=== PATIENT | female | born 1970 | race Caucasian/White ===

== ENCOUNTER 2020-09-01 20:23 | Emergency (ER) | payer OTHER ==
--- OUTSIDE RECORDS SUMMARY | 2020-09-01 20:27 | XMS REPORT | Continuity of Care Document ---
:1970 Author Organization [facility] t Address [address] [place] [address] Care Team Providers Name Role Phone Ute Leung Attending Clinician Steffany Decker Attending Clinician Problems Condition Condition Condition Status Onset Resolution Last Treating Co mments Source Name Details Category Date Date Treatment Clinician Date Muscle Problem Active 2012-062019-02-20 Memor ia pain 2-05 00:15:55 l (finding) Muscle 00:00: Leticia nn pain 00 (finding) Active 06/03/2013 Problem 02/20/2019 Data migrated from [employer] on 11/29/14. Medical Group Cervico-oc Problem Active 2012-062019-02-20 M emoria cipital 1-20 00:15:55 l neuralgia 00:00: [place] (finding) Cervico-oc 00 cipital neuralgia (finding) Active 05/19/2013 Problem 02/20/2019 Data migrated from [employer] on 11/29/14. Medical Group Spasm of Problem Active 2012-062019-02-20 Mem oria back 1-20 00:15:55 l muscles Spasm of 00:00: Leticia nn (finding) back 00 muscles (finding) Active 05/19/2013 Problem 02/20/2019 Data migrated from [employer] on 11/29/14. Medical Group Migraine Problem Active 2019-02-20 Mem oria (disorder) 00:15:55 l Migraine Ward n (disorder) Active Problem 02/20/2019 Medical Group Migraine Problem Active 2019-02-20 Mem oria with aura 00:15:55 l (disorder) Migraine He rmann with aura (disorder) Active Problem 02/20/2019 Medical Group Spasmodic Problem Active 2019-02-20 Me moria torticolli 00:15:55 l s Oj (disorder) Spasmodic torticolli s (disorder) Active Problem 02/20/2019 Medical Group Allergies, Adverse Reactions, Alerts Allergy Allergy Status Severity Reaction(s) Onset Inactive Treating Comm ents Source Name Type Date Date Clinician sulfa sulfa Active 2012-06 Memoria drugs<potts drugs<potts 1-20 l p>1</sup p>1</sup 06:00: Ward n > > 00 Social History Social Habit Start Date Stop Date Quantity Comments Source Social History 2018-04-14 2018-04-14 [facility] 16:52:20 16:52:20 Medications Ordered Filled Start Stop Current Ordering Indication Dosage Frequency Signature Comments Components Source Medication Medication Date Date Medication? Clinician (SIG) Name Name Acetamino Yes 1 tab, PO, Memoria en 325 MG / 8-21 Q6H, # 30 l Hydrocodone 16:03: tab, 0 Herm stacy Bitartrate 31 Refill(s), 5 MG Oral given to Tablet patient pregabalin Yes 50 mg = 2 Me moria 25 MG Oral 7-08 cap, PO, l Capsule 21:10: Daily, # Ward n [Lyrica] 32 180 cap, 0 Refill(s) dexamethaso Yes See Memori a ne 6 mg 6-11 Instructio l oral tablet 14:17: ns, 3 tab H ermann 00 po x 1 day, then 2 tab po x 1 day, then 1 tab PO x 1 day then stop, # 6 tab, 0 Refill(s), [facility] indomethaci Yes = 1 cap, Me moria n 75 mg 6-06 PO, Daily, l oral 17:23: # 30 Oj capsule, 26 unknown extended unit, release Refill(s) 2, WITH FOOD., Pharmacy: [facility] Acetaminoph Yes 1 tab, PO, Memoria en 325 MG / 6-05 Q6H, # 30 l Hydrocodone 16:09: tab, 0 Herm stacy Bitartrate 11 Refill(s), 5 MG Oral given to Tablet patient onabotulinu Yes See Memori a mtoxinA 100 5-09 Instructio l UNT/ML 17:32: ns, Oj Injectable 00 Administer Solution 300 unis [Botox] IM to head and neck every 90 days by physician 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), X 1 day, # 3 vial, 3 Refill(s) Acetaminoph Yes 1 tab, PO, Memoria en 325 MG / 3-26 Q6H, # 30 l Hydrocodone 17:01: tab, 0 Herm stacy Bitartrate 10 Refill(s), 5 MG Oral given to Tablet patient onabotulinu Yes See Memori a mtoxinA 200 3-19 Instructio l UNT/ML 22:30: ns, # 1 Oj Injectable 04 ea, Solution Refill(s) [Botox] 2, INJECT 155 UNITS INTRA MUSCULARLY TO HEAD AND NECK EVERY 90 DAYS FOR CHRONIC MIGRAINE, Pharmacy: [facility] indomethaci Yes = 1 cap, Me moria n 75 mg 2-19 PO, Daily, l oral 17:32: # 30 Oj capsule, 34 unknown extended unit, release [facility] Acetaminoph No 1 tab, PO, Memoria en 325 MG / 1-07 Q6H, # 30 l Hydrocodone 17:56: tab, 0 Herm stacy Bitartrate 18 Refill(s), 5 MG Oral given to Tablet patient indomethaci 2017-06 No = 1 cap, Me moria n 75 mg 2-18 PO, Daily, l oral 19:25: # 30 [place] capsule, 50 unknown extended unit, release Refill(s) 1, [facility] pregabalin 2017-06 No 50 mg = 2 Me moria 25 MG Oral 2-18 cap, PO, l Capsule 18:54: Daily, # Ward n [Lyrica] 00 180 cap, 1 Refill(s) onabotulinu 2017-06 No See Memori a mtoxinA 100 2-04 Instructio l UNT/ML 20:51: ns, [place] Injectable 00 Administer Solution 300 units [Botox] IM to head and neck every 90 days by physician 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 2017-06 No See Memori a mtoxinA 200 0-09 Instructio l UNT/ML 16:31: ns, Oj Injectable 00 Administer Solution 155 units [Botox] IM to head and neck every 90 days by physician for Chronic Migraine (ICD G43.709), X 1 day, # 1 vial, 3 Refill(s) indomethaci No See Memori a n 75 mg 9-21 Instructio l oral 16:14: ns, # 30 [place] capsule, 03 unknown extended unit, TAKE release 1 CAPSULE BY MOUTH DAILY, [facility]acy: 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), X 1 day, # 3 vial, 3 Refill(s) Acetaminoph No 1 tab, PO, Memoria en 325 MG / 8-17 Q6H, # 30 l Hydrocodone 16:35: tab, 0 Herm stacy Bitartrate 33 Refill(s), 5 MG Oral given to Tablet patient indomethaci No See Memori a n 75 mg 7-17 Instructio l oral 21:27: ns, TAKE 1 [place] capsule, 29 CAPSULE BY extended MOUTH release EVERY DAY, # 30 cap, 1 Refill(s), [facility] ketOROLAC No 30 mg, Memori a 30 mg/mL 7-09 Route: IM, l injectable 17:28: ONCE, Ward n solution 00 Dosing Weight 44.716, kg, Start date: 01/05/18 12:28:00 CDT, Stop date: 01/05/18 12:28:00 CDT indomethaci Yes See Memori a n 75 mg 6-19 Instructio l oral 14:22: ns, # 30 Oj capsule, 57 unknown extended unit, TAKE release 1 CAPSULE BY MOUTH EVERY DAY, [facility] indomethaci Yes See Memori a n 75 mg 5-21 Instructio l oral 14:01: ns, # 30 [place] capsule, 47 unknown extended unit, TAKE release 1 CAPSULE BY MOUTH EVERY DAY, [facility] onabotulinu Yes See Memori a mtoxinA 100 4-12 Instructio l UNT/ML 20:25: ns, O[place] Injectable 00 Administer Solution 300 units [Botox] IM to head and neck every 90 days by physician 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), X 1 day, # 3 vial, 3 Refill(s) pregabalin Yes 50 mg = 2 Me moria 25 MG Oral 3-19 cap, PO, l Capsule 20:45: Daily, # Ward n [Lyrica] 00 180 cap, 1 Refill(s) indomethaci No See Memori a n 75 mg 3-19 Instructio l oral 18:06: ns, # 30 Oj capsule, 00 unknown extended unit, release Refill(s) 1, TAKE 1 CAPSULE BY MOUTH EVERY DAY, [facility]: [facility] Acetaminoph Yes 1 tab, PO, Memoria en 325 MG / 2-28 Q6H, # 30 l Hydrocodone 00:19: tab, 0 Herm stacy Bitartrate 00 Refill(s), 5 MG Oral other Tablet indomethaci 2016-06 Yes See Memori a n 75 mg 2-21 Instructio l oral 23:44: ns, TAKE 1 [place] capsule, 21 CAPSULE BY extended MOUTH release EVERY DAY, # 30 cap, 2 Refill(s), [facility] Ondansetron 2016-06 Yes 8 mg = 1 Me moria 8 MG 1-17 tab, PO, l Disintegrat 19:39: TID, PRN He rmann ing Tablet 49 Nausea | PRN nausea, Dissolve under tongue, # 30 tab, 1 Refill(s), [facility] rizatriptan 2017- Yes See Memori a 10 mg oral 1-17 Instructio l tablet 19:14: ns, TAKE 1 Leticia nn 00 TABLET BY MOUTH DAILY NEEDED FOR MIGRAINE HEADACHE, # 30 tab, 2 Refill(s), [facility] Vital Signs Vital Name Observation Time Observation Value Comments Source Height 2019-02-17 15:09:00 152.4 cm [facility] [place] Systolic (mm Hg) 2019-02-17 15:09:00 Mansoor rial [place] Diastolic (mm Hg) 2019-02-17 15:09:00 Mem orial Oj Heart Rate 2019-02-17 15:09:00 [facility] [place] Weight 2019-02-17 15:09:00 [facility] [place] BMI Calculated 2019-02-17 15:09:00 Memori al Oj Height 2018-12-02 15:31:00 152.4 cm [facility] Weight 2018-12-02 15:31:00 [facility] [place] BMI Calculated 2018-12-02 15:31:00 [facility] [place] Heart Rate 2018-12-02 15:31:00 [facility] [place] Systolic (mm Hg) 2018-12-02 15:31:00 Mansoor rial Oj Diastolic (mm Hg) 2018-12-02 15:31:00 Mem o[facility] [place] Height 2018-09-22 15:51:00 152.4 cm [facility] [place] Heart Rate 2018-09-22 15:51:00 [facility] [place] Systolic (mm Hg) 2018-09-22 15:51:00 Mansoor rial [place] Diastolic (mm Hg) 2018-09-22 15:51:00 Mem orial Oj BMI Calculated 2018-09-22 15:51:00 [facility] [place] Weight 2018-09-22 15:51:00 [facility] [place] Weight 2018-07-06 17:03:00 [facility] BMI Calculated 2018-07-06 17:03:00 [facility] [place] Height 2018-07-06 17:03:00 152.4 cm [facility] [place] Heart Rate 2018-07-06 17:03:00 [facility] [place] Systolic (mm Hg) 2018-07-06 17:03:00 Mansoor rial [place] Diastolic (mm Hg) 2018-07-06 17:03:00 [facility] [place] Height 2018-04-14 16:17:00 152.4 cm [facility] [place] Weight 2018-04-14 16:17:00 [facility] [place] BMI Calculated 2018-04-14 16:17:00 [facility] [place] Heart Rate 2018-04-14 16:17:00 [facility] Oj Systolic (mm Hg) 2018-04-14 16:17:00 Mansoor rial [place] Diastolic (mm Hg) 2018-04-14 16:17:00 [facility] [place] Weight 2018-02-13 15:55:00 [facility] BMI Calculated 2018-02-13 15:55:00 Memori al Oj Height 2018-02-13 15:55:00 152.4 cm [facility] [place] Heart Rate 2018-02-13 15:55:00 [facility] [place] Systolic (mm Hg) 2018-02-13 15:55:00 Mansoor rial [place] Diastolic (mm Hg) 2018-02-13 15:55:00 Mem orial Oj Heart Rate 2018-01-05 16:42:00 [facility] [place] Systolic (mm Hg) 2018-01-05 16:42:00 Mansoor rial Oj Diastolic (mm Hg) 2018-01-05 16:42:00 Mem o[facility] [place] BMI Calculated 2018-01-05 16:42:00 [facility] [place] Weight 2018-01-05 16:42:00 [facility] [place] Height 2018-01-05 16:42:00 152.4 cm [facility] O[facility] Weight 2017-10-16 16:40:00 [facility] [place] BMI Calculated 2017-10-16 16:40:00 Memori al Oj Height 2017-10-16 16:40:00 152.4 cm [facility] [place] Heart Rate 2017-10-16 16:40:00 [facility] [place] Systolic (mm Hg) 2017-10-16 16:40:00 Mansoor rial [place] Diastolic (mm Hg) 2017-10-16 16:40:00 Mem orial Oj BMI Calculated 2017-07-24 21:48:00 [facility] [place] Heart Rate 2017-07-24 21:48:00 [facility] [place] Height 2017-07-24 21:48:00 152.4 cm [facility] [place] Systolic (mm Hg) 2017-07-24 21:48:00 Mansoor nery [place] Diastolic (mm Hg) 2017-07-24 21:48:00 [facility] orial [place] Weight 2017-07-24 21:48:00 [facility] Procedures Procedure Date / Time Performing Clinician Source Performed [place] of 2019-02-17 16:04:00 [facility] muscle(s); neck muscle(s), excluding muscles of the larynx, unilateral (eg, for cervical dystonia, spasmodic torticollis) Injection(s); single or 2018-02-13 16:39:00 Mansoor riamay Oj multiple trigger point(s), 3 or more muscles [place] of 2018-01-05 17:25:00 [facility] muscle(s); muscle(s) innervated by facial, trigeminal, cervical spinal and accessory nerves, bilateral (eg, for chronic migraine) Eye examination 2017-06-30 00:00:00 [facility] Her wilson Mammogram 2015-06-30 00:00:00 [facility] Her wilson Encounters Start End Encounter Admission Attending Care Care Encounter Source Date/Time Date/Time Type Type Clinicians Facility Department ID 2019-02-17 2019-02-17 Outpatient Ute Leung [facility] [id number] 10:45:00 23:59:59 29 2019-01-04 2019-01-05 [id number] 16:08:58 16:08:58 48 2018-12-08 2018-12-09 Outpatient [facility] [id number] 08:28:21 23:59:59 45 2018-12-03 2018-12-04 Outpatient MG MG [id number] 12:13:53 23:59:59 44 2018-12-02 2018-12-02 [facility] [id number] 10:45:00 23:59:59 Steffany 28 Young 2018-11-05 2018-11-06 Outpatient [facility] [id number] 12:32:18 23:59:59 43 2018-09-22 2018-09-22 [id number] 11:15:00 23:59:59 27 2018-09-15 2018-09-16 Outpatient MG MG [id number] 11:59:00 23:59:59 42 2018-09-07 2018-09-08 Outpatient [facility] [id number] 09:01:00 23:59:59 41 2018-08-18 2018-08-19 Outpatient [facility] [id number] 10:50:00 23:59:59 40 2018-07-06 2018-07-06 Outpatient RoxanneRamón deleonll [facility] [id number] 11:15:00 23:59:59 26 2018-06-16 2018-06-17 Outpatient [facility] [id number] 11:45:00 23:59:59 39 2018-06-16 2018-06-17 Outpatient [facility] [id number] 10:11:00 23:59:59 38 2018-06-02 2018-06-03 Outpatient [facility] [id number] 14:50:00 23:59:59 37 2018-04-28 2018-04-28 Outpatient Madhu Ute [facility] [id number] 10:45:00 10:45:00 24 2018-04-16 2018-04-17 Outpatient [facility] [id number] 13:47:00 23:59:59 36 2018-04-14 2018-04-14 Outpatient Jeronimo, [facility] [id number] 11:15:00 23:59:59 Steffany 25 Lobo 2018-03-27 2018-03-27 Outpatient Madhu Ute MG [facility] [id number] 08:45:00 08:45:00 19 2018-03-20 2018-03-21 Outpatient [facility] [id number] 11:05:00 23:59:59 35 2018-03-17 2018-03-18 Outpatient MHMG MG [id number] 09:29:00 23:59:59 34 2018-03-13 2018-03-13 Outpatient Madhu Ute [facility] [id number] 10:45:00 10:45:00 23 2018-02-27 2018-02-27 Outpatient Ute Leung [facility] [id number] 10:45:00 10:45:00 22 2018-02-13 2018-02-13 Outpatient Ute Leung [facility] [id number] 10:45:00 23:59:59 21 2018-01-29 2018-01-29 Outpatient Ute Leung [facility] [id number] 10:15:00 10:15:00 20 2018-01-13 2018-01-14 Outpatient [facility] [id number] 11:35:00 23:59:59 33 2018-01-13 2018-01-14 Outpatient [facility] [id number] 11:23:00 23:59:59 32 2018-01-13 2018-01-14 Outpatient [facility] [id number] 11:14:00 23:59:59 31 2018-01-13 2018-01-14 Outpatient [facility] [id number] 11:14:00 23:59:59 31 2018-01-05 2018-01-05 Outpatient Jeronimo, [facility] [id number] 11:45:00 23:59:59 Steffany 18 Lobo 2017-12-16 2017-12-17 Outpatient [facility] [id number] 08:24:00 23:59:59 30 2017-11-17 2017-11-18 Outpatient [facility] [id number] 08:34:00 23:59:59 29 2017-10-16 2017-10-16 Outpatient Ute Leung [facility] [id number] 11:45:00 23:59:59 17 2017-10-09 2017-10-10 Outpatient [facility] [id number] 15:25:00 23:59:59 28 2017-10-03 2017-10-04 Outpatient [facility] [id number] 09:44:00 23:59:59 27 2017-09-15 2017-09-16 Outpatient [facility] [id number] 16:28:00 23:59:59 26 2017-09-15 2017-09-16 Outpatient [facility] [id number] 11:46:00 23:59:59 25 2017-09-05 2017-09-06 Outpatient [facility] [id number] 11:33:00 23:59:59 24 2017-08-22 2017-08-23 Outpatient [facility] [id number] 11:35:00 23:59:59 23 2017-07-24 2017-07-24 Outpatient Jeronimo, [facility] [id number] 15:30:00 23:59:59 Steffany 16 Lobo 2017-07-24 2017-07-24 Outpatient Jeronimo, [facility] [id number] 15:30:00 23:59:59 Steffany Holland Lobo 2017-06-19 2017-06-20 Outpatient MG [facility] [id number] 11:28:00 23:59:59 22 2017-06-17 2017-06-18 Outpatient MG [facility] [id number] 13:43:00 23:59:59 21 2017-05-16 2017-05-17 Outpatient MG MG [id number] 13:35:00 23:59:59 20 2017-05-16 2017-05-17 Outpatient MG [facility] [id number] 11:25:00 23:59:59 19 Results This patient has no known results."
[2020-09-01] MEDS ORDERED: KETOROLAC 30 MG/ML INJ ONE (21:21)
[2020-09-01] MEDS ORDERED: NA CHLORIDE 0.9% 1,000 ML ONE (21:21)
[2020-09-01] MEDS ORDERED: ONDANSETRON 4 MG/2 ML VIAL ONE (21:21)
[2020-09-01] MEDS ORDERED: METOCLOPRAMIDE 10 MG/2mL INJ ONE (21:23)
[2020-09-01] MEDS ORDERED: MEPERIDINE HCL 25 MG/ML SYR ONE ×2 (22:21→23:40)
[2020-09-01] MEDS ORDERED: PROMETHAZINE INJ 25 MG/ML AMP ONE (22:53)
--- NOTE | 2020-09-01 23:23 | ER ---
Nurse's Notes [facility] Name: Keri Ashton Age: 50 yrs Sex: Female : 1970 Arrival Date: 09/01/2020 Time: 20:26 Bed 14 Private MD: Diagnosis: Headache;Nausea and vomiting Presentation: 09/01 20:50 Chief complaint: Patient states: Headache, N/V x 3 - days. HX of Migraines. Has not had ca1 scheduled Botox for migraines because of insurance. Coronavirus screen: Client denies travel out of the [place] in the last 14 days. headache, nausea, vomiting. Client presents with at least one sign or symptom that may indicate coronavirus-19. Standard/surgical mask placed on the client. Provider contacted for isolation considerations. Ebola Screen: Patient negative for fever greater than or equal to 101.5 degrees Fahrenheit, and additional compatible Ebola Virus Disease symptoms Patient denies exposure to infectious person. Patient denies travel to an Ebola-affected area in the 21 days before illness onset. No symptoms or risks identified at this time. Initial Sepsis Screen: Does the patient meet any 2 criteria? No. Patient's initial sepsis screen is negative. Does the patient have a suspected source of infection? No. Patient's initial sepsis screen is negative. Risk Assessment: Do you want to hurt yourself or someone else? Patient reports no desire to harm self or others. Onset of symptoms was September 01, 2020. 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 - Social history:: Smoking status: Patient denies any tobacco usage or history of. Smoking status: Patient denies any tobacco usage or history of. Screenin:54 Abuse screen: Denies threats or abuse. Nutritional screening: No deficits noted. ea Tuberculosis screening: No symptoms or risk factors identified. Fall Risk None identified. Assessment: 20:54 General: Appears uncomfortable, Behavior is appropriate for age. Pain:. Neuro: Level of ea Consciousness is awake, alert, obeys commands, Oriented to person, place, time. Cardiovascular: Patient's skin is warm and dry. Respiratory: Airway is patent Respiratory effort is even, unlabored, Respiratory pattern is regular, symmetrical. Derm: Skin is pink, warm \T\ dry. 23:42 Reassessment: Patient and/or family updated on plan of care and expected duration. Pain ea level reassessed. Patient is alert, oriented x 3, equal unlabored respirations, skin warm/dry/pink. Discharge instruction given to patient verbalized the understanding of instruction. Pt left ED ambulatory accompanied by family tolerating well. Vital Signs: 20:50 BP 153 / 101; Pulse 95; Resp 18 S; Temp 97.9(TE); Pulse Ox 99% on R/A; Weight 47.63 kg ca1 (R); Height 5 ft. 0 in. (152.40 cm) (R); Pain 9/10; 22:40 BP 121 / 87; Pulse 80; Resp 18; Pulse Ox 99% on R/A; ea 23:40 BP 123 / 70; Pulse 78; Resp 18; Pulse Ox 99% on R/A; ea 20:50 Body Mass Index 20.51 (47.63 kg, 152.40 cm) ca1 ED Course: 20:26 Patient arrived in ED. am4 20:47 Kun Johnson PA is PHCP. cp 20:47 Gagandeep Massey MD is Attending Physician. cp 20:53 Triage completed. ca1 20:54 Preethi Covarrubias RN is Primary Nurse. ea 20:55 Patient has correct armband on for positive identification. Bed in low position. Call ea light in reach. 20:55 Arm band placed on right wrist. Patient placed in an exam room, on a stretcher, on ea pulse oximetry. 21:27 Inserted saline lock: 20 gauge in right antecubital area, using aseptic technique. ea Blood collected. 23:40 No provider procedures requiring assistance completed. IV discontinued, intact, ea bleeding controlled, No redness/swelling at site. Pressure dressing applied. 09/02 12:49 CT Head Brain wo Cont In Process Unspecified. EDMS Administered Medications: 09/01 21:26 Drug: NS 0.9% 1000 ml Route: IV; Rate: 1 bolus; Site: right antecubital; ea 23:14 Follow up: Response: No adverse reaction; IV Status: Completed infusion ea 21: Drug: Reglan 10 mg Route: IVP; Site: right antecubital; ea 23:14 Follow up: Response: No adverse reaction ea 21: Drug: Zofran (Ondansetron) 4 mg Route: IVP; Site: right antecubital; ea 23:15 Follow up: Response: No adverse reaction ea 21: Drug: TORadol - Ketorolac 15 mg Route: IVP; Site: right antecubital; ea 23:14 Follow up: Response: No adverse reaction ea 22:17 Drug: Demerol 25 mg Route: IVP; Site: right antecubital; ea 23:14 Follow up: Response: No adverse reaction; RASS: Alert and Calm (0) ea 22:40 Drug: Phenergan 12.5 mg Route: IVP; Site: right antecubital; ea 23:14 Follow up: Response: No adverse reaction ea 23:33 Not Given (Patient Refused): Decadron - Dexamethasone 10 mg IVP once ea 23:33 Drug: Demerol 25 mg Route: IVP; Site: right antecubital; ea 23:45 Follow up: Response: No adverse reaction ea Outcome: 23:22 Discharge ordered by MD. cp 23:40 Discharged to home ambulatory, with family. ea 23:40 Condition: stable 23:40 Discharge instructions given to patient, Instructed on discharge instructions, follow up and referral plans. medication usage, Demonstrated understanding of instructions, follow-up care, medications, Prescriptions given X 2. 23:45 Patient left the ED. ea Signatures: Dispatcher [employer] EDMS Kun Johnson PA PA cp Antunez, Elena, RN RN ea Acob, Cheryl, RN RN ca1 Martinez, Ashley am4
--- NOTE | 2020-09-01 23:23 | EDPHYS ---
Physician Documentation [facility] Name: Keri Ashton Age: 50 yrs Sex: Female : 1970 Arrival Date: 09/01/2020 Time: 20:26 Bed 14 Private MD: ED Physician Gagandeep Massey HPI: 09/01 21:10 This 50 yrs old Female presents to ER via Ambulatory with complaints of cp Headache, Nausea/Vomiting. 21:10 The patient complains of pain to the top of head and forehead. The patient describes cp the headache as aching. Onset: The symptoms/episode began/occurred 4 day(s) ago. 21:10 Associated signs and symptoms: Pertinent positives: nausea, Photophobia vomiting, cp Pertinent negatives: fever, neck stiffness. 21:10 Severity of symptoms: in the emergency department the pain is unchanged, despite home cp interventions. Headache History: The patient has had previous headaches and this one is similar to previous episodes. 21:10 Patient reports history of migraines. Sees a neurologist in [place], DR Decker, who cp performs Botox injections. Was unable to make it to recent appointment due to weather. Headache started Friday, vomiting started 3 days ago and became worse today. 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 - Social history:: Smoking status: Patient denies any tobacco usage or history of. Smoking status: Patient denies any tobacco usage or history of. ROS: 21:15 Constitutional: Negative for body aches, chills, fever. cp 21:15 Eyes: Positive for photophobia. cp 21:15 ENT: Negative for drainage from ear(s), ear pain, sore throat, difficulty swallowing, difficulty handling secretions. 21:15 Cardiovascular: Negative for chest pain. 21:15 Respiratory: Negative for cough, shortness of breath, wheezing. 21:15 Abdomen/GI: Positive for nausea and vomiting, Negative for diarrhea, constipation. 21:15 : Negative for urinary symptoms. 21:15 Skin: Negative for rash. 21:15 Neuro: Positive for headache, Negative for altered mental status, weakness. 21:15 All other systems are negative. Exam: 21:22 Constitutional: The patient appears in no acute distress, alert, awake, cp non-diaphoretic, non-toxic, well developed, well nourished, uncomfortable. 21:22 Head/Face: Normocephalic, atraumatic. cp 21:22 Eyes: Periorbital structures: appear normal, Pupils: equal, round, and reactive to light and accomodation, Extraocular movements: intact throughout, Conjunctiva: normal, no exudate, no injection, Sclera: no appreciated abnormality, Lids and lashes: appear normal, bilaterally. 21:22 ENT: External ear(s): are unremarkable, Nose: is normal, Posterior pharynx: Airway: no evidence of obstruction, patent. 21:22 Neck: ROM/movement: is normal, is supple, no range of motions limitations, no meningismus, no nuchal rigidity, Lymph nodes: no appreciated lymphadenopathy. 21:22 Chest/axilla: Inspection: normal, Palpation: is normal, no crepitus, no tenderness. 21:22 Cardiovascular: Rate: normal, Rhythm: regular. 21:22 Respiratory: the patient does not display signs of respiratory distress, Respirations: normal, no use of accessory muscles, no retractions, labored breathing, is not present, Breath sounds: are clear throughout, no decreased breath sounds. 21:22 Abdomen/GI: Exam negative for discomfort, distension, guarding, Inspection: abdomen appears normal. 21:22 Neuro: Orientation: to person, place \T\ time. Mentation: is normal, Cerebellar function: Romberg testing is negative, Motor: moves all fours, strength is normal, Sensation: no obvious gross deficits. Vital Signs: 20:50 BP 153 / 101; Pulse 95; Resp 18 S; Temp 97.9(TE); Pulse Ox 99% on R/A; Weight 47.63 kg ca1 (R); Height 5 ft. 0 in. (152.40 cm) (R); Pain 9/10; 22:40 BP 121 / 87; Pulse 80; Resp 18; Pulse Ox 99% on R/A; ea 23:40 BP 123 / 70; Pulse 78; Resp 18; Pulse Ox 99% on R/A; ea 20:50 Body Mass Index 20.51 (47.63 kg, 152.40 cm) ca1 MDM: 20:52 Patient medically screened. cp 23:20 Data reviewed: vital signs, nurses notes, radiologic studies, CT scan. cp 23:20 Counseling: I had a detailed discussion with the patient and/or guardian regarding: the cp historical points, exam findings, and any diagnostic results supporting the discharge/admit diagnosis, radiology results, the need for outpatient follow up, a neurologist, to return to the emergency department if symptoms worsen or persist or if there are any questions or concerns that arise at home. ED course: VSS. Nausea and pain markedly improved. Will discharge to home for continued monitoring. 09/01 20:59 Order name: CT Head Brain wo Cont cp 09/01 20:59 Order name: IV; Complete Time: 21:26 cp 09/01 23:08 Order name: PO challenge; Complete Time: 23:33 cp Administered Medications: 21:26 Drug: NS 0.9% 1000 ml Route: IV; Rate: 1 bolus; Site: right antecubital; ea 23:14 Follow up: Response: No adverse reaction; IV Status: Completed infusion ea 21:27 Drug: Reglan 10 mg Route: IVP; Site: right antecubital; ea 23:14 Follow up: Response: No adverse reaction ea 21:27 Drug: Zofran (Ondansetron) 4 mg Route: IVP; Site: right antecubital; ea 23:15 Follow up: Response: No adverse reaction ea 21:27 Drug: TORadol - Ketorolac 15 mg Route: IVP; Site: right antecubital; ea 23:14 Follow up: Response: No adverse reaction ea 22:17 Drug: Demerol 25 mg Route: IVP; Site: right antecubital; ea 23:14 Follow up: Response: No adverse reaction; RASS: Alert and Calm (0) ea 22:40 Drug: Phenergan 12.5 mg Route: IVP; Site: right antecubital; ea 23:14 Follow up: Response: No adverse reaction ea 23:33 Not Given (Patient Refused): Decadron - Dexamethasone 10 mg IVP once ea 23:33 Drug: Demerol 25 mg Route: IVP; Site: right antecubital; ea 23:45 Follow up: Response: No adverse reaction ea Disposition: 23:50 Chart complete. cp 09/02 03:15 Co-signature as Attending Physician, Gagandeep Massey MD. [email or web address] Disposition: 09/01/20 23:22 Discharged to Home. Impression: Headache, Nausea and vomiting. - Condition is Stable. - Discharge Instructions: Migraine Headache, Nausea and Vomiting, Adult. - Prescriptions for Phenergan 25 mg Rectal Suppository - insert 1 suppository by RECTAL route every 6 hours As needed; 12 suppository. promethazine 25 mg Oral Tablet - take 1 tablet by ORAL route every 6 hours As needed; 20 tablet. - Medication Reconciliation Form, Thank You Letter, Antibiotic Education, Prescription Opioid Use form. - Follow up: Private Physician; When: 2 - 3 days; Reason: Recheck today's complaints. - Problem is an acute exacerbation. - Symptoms have improved. Signatures: Dispatcher [employer] EDMS Kun Johnson PA PA cp Antunez, Elena, RN RN ea Acob, Cheryl, RN RN ca1 Holmes, Maurice, MD MD [email or web address] Corrections: (The following items were deleted from the chart) 09/01 23:09 22:00 This 50 yrs old Female presents to ER via Ambulatory with complaints of cp Headache, Nausea/Vomiting. cp 23:45 23:22 09/01/2020 23:22 Discharged to Home. Impression: Headache; Nausea and vomiting. ea Condition is Stable. Forms are Medication Reconciliation Form, Thank You Letter, Antibiotic Education, Prescription Opioid Use. Follow up: Private Physician; When: 2 - 3 days; Reason: Recheck today's complaints. Problem is an acute exacerbation. Symptoms have improved. cp
[2020-09-01] MEDS ORDERED: dexAMETHasone 10 MG/ML VIAL ONE (23:40)
[2020-09-02 02:21] VITALS: TEMP 97.9; O2SAT 99
[2020-09-02 02:29] VITALS: BP 123/70
--- NOTE | 2020-09-02 21:55 | RAD REPORT ---
EXAM DESCRIPTION: CT - Head Brain Wo Cont - 09/02/2020 6:43 am [facility]: CT HEAD WITHOUT IV CONTRAST CLINICAL HISTORY: HEADACHE. TECHNIQUE: Axial, coronal, and sagittal images through the brain were performed in the absence of in travenous contrast. This exam was performed according to our departmental dose-optimization program w hich includes use of Automated Exposure Control, adjustment of the mA and/or kV according to patient size and/or use of iterative reconstruction technique. COMPARISON: None. FINDINGS: The brain parenchyma appears unremarkable. There is no intra-axial or extra-axial bleed se en. There is no mass or mass effect. The ventricles are normal in size shape and configuration. The o rbital contents appear unremarkable. The visualized paranasal sinuses and mastoid air cells are patent. No fracture is identified. IMPRESSION: No acute intracranial abnormality identified. Electronically signed by: Hoa Ramos MD 09/01/2020 9:27 PM MEDICAL LIBRARY ASSISTANT Due to temporary technical issues with the PACS/Fluency reporting system, reports are being signed by the in house radiologists without review as a courtesy to insure prompt reporting. The interpreting radiologist is fully responsible for the content of the report.
== END 2020-09-01 23:45 | disposition home or self-care (01) ==
LOC: ER 20:23
DX: R11.2 Nausea with vomiting, unspecified (principal); Z88.2 Allergy status to sulfonamides; Z88.8 Allergy status to other drugs, medicaments and biological substances
CPT/HCPCS: 96361; 70450; 96375; 96374; 99284; J2765; J2550; J1100; J2175 ×2; J7030; J2405